=== PATIENT | female | born 1935 | race Caucasian/White ===

== ENCOUNTER → 2017-10-25 | Outpatient (CLI) | payer MEDICARE, OTHER ==
--- NOTE | 2017-10-26 10:03 | RADIOLOGY IMAGING REPORT ---
FACILITY: [facility] PATIENT NAME: ROMEO LARA : [id number] MR: [id number] V: [id number] EXAM DATE: [id number] ORDERING PHYSICIAN: ARNEL DE LA VEGA TECHNOLOGIST: Jessica Resendiz PROCEDURE:BILATERAL DIGITAL SCREENING MAMMOGRAM WITH CAD ASSISTED INTERPRETATION & 3D TOMOSYNTHESIS COMPARISON:None. The prior mammograms from 2008, 2005 are not currently available. INDICATIONS:SCREENING FINDINGS: Small to moderate amount of fibroglandular tissue is seen throughout the breasts. There is a vague area of architectural distortion in the upper outer quadrant of the Left breast for which Spot compression views are recommended. DIAGNOSTIC CATEGORY 0--INCOMPLETE: NEED ADDITIONAL IMAGING EVALUATION. RECOMMENDATIONS: ADDITIONAL MAMMOGRAPHIC VIEWS REQUIRED: LEFT BREAST. IMPRESSION: BIRADS 0: Incomplete Additional view of Left breast is recommended as described above. Dictated by: Estella Swan M.D. on 10/25/2017 at 17:08 Transcribed by: MARISOL on 10/26/2017 at 7:54 Approved by: Estella Swan M.D. on 10/26/2017 at 10:02 [facility]
== END ==
LOC: MAMO 02:10
PROVIDERS: ATTEND Nurse Practitioner Family
DX: Z12.31 Encounter for screening mammogram for malignant neoplasm of breast (principal); R92.8 Other abnormal and inconclusive findings on diagnostic imaging of breast
CPT/HCPCS: 77063; 77067

== ENCOUNTER → 2017-11-08 | Outpatient (CLI) | payer MEDICARE, OTHER ==
--- NOTE | 2017-11-09 16:22 | RADIOLOGY IMAGING REPORT ---
FACILITY: [facility] PATIENT NAME: ROMEO LARA : [id number] MR: [id number] V: [id number] EXAM DATE: [id number] ORDERING PHYSICIAN: ARNEL DE LA VEGA TECHNOLOGIST: Cristal Awad PROCEDURE:LEFT DIGITAL DIAGNOSTIC MAMMOGRAM WITH CAD ASSISTED INTERPRETATION & 3D TOMOSYNTHESIS COMPARISON:Prior mammograms 10/25/17, 07/30/08, 07/18/06. INDICATIONS:FURTHER EVAL FINDINGS: The patient returns for Spot compression view Left CC and MLO projection. Small to moderate amount of fibroglandular tissue is seen throughout the Left breast. The vague area of architectural distortion in the upper outer quadrant of the Left breast appears partially compressible. This now appears similar to prior mammograms from 07/18/06 and 07/30/08. This is apparently in the location of a previous biopsy. DIAGNOSTIC CATEGORY 2--BENIGN FINDING. RECOMMENDATIONS: ROUTINE MAMMOGRAM AND CLINICAL EVALUATION. IMPRESSION: BIRADS 2: Benign finding Area of architectural distortion upper outer quadrant of the Left appears partially compressible and apparently corresponds to an area of prior surgical biopsy. Dictated by: Estella Swan M.D. on 11/08/2017 at 15:58 Transcribed by: MARISOL on 11/09/2017 at 9:30 Approved by: Estella Swan M.D. on 11/09/2017 at 16:21 [facility]
== END ==
LOC: MAMO 01:10
PROVIDERS: ATTEND Nurse Practitioner Family
DX: R92.2 Inconclusive mammogram (principal)
CPT/HCPCS: 77065